=== PATIENT | male | born 1985 | race Caucasian/White ===

== ENCOUNTER 2020-03-31 06:07 | Outpatient (REF) | payer OTHER, SELFPAY ==
[2020-03-31 06:39] LABS: COVID-19 Test Negative (Negative)
== END 2020-03-31 06:08 | disposition home or self-care (01) ==
LOC: HO.LAB 06:07
PROVIDERS: Visit Provider Internal Medicine
DX: Z20.828 Contact with and (suspected) exposure to other viral communicable diseases (principal)
CPT/HCPCS: 87635